=== PATIENT | female | born 1965 | race Caucasian/White ===

== ENCOUNTER 2017-08-31 12:19 | Emergency (ER) | payer OTHER ==
[~2017-08-31] VITALS: Ht 162.6 cm; Wt 77.8 kg
[~2017-08-31 12:19] MED LIST: BCP TD; CEFTIN250 M1 PO; CEFTIN500 MG PO; CIPRO 500MG TA500 MG; CLARITIN; CLARITIN 1010 MG/TAB PO; LEVOTHYROXIN0.025 MG PO; LEVOXYL0.025 MG PO; NORCO 325 MG-51 TAB PO; PREDNISONE20 MG PO; PYRIDIUM200 M1 PO; SINGULAIR; SINGULAIR 110 MG/TAB PO; ZOFRAN ODT4 MG PO; ZOLOFT 25MG25 MG
[2017-08-31 12:31] VITALS: BP 136/83; TEMP 98.8
[2017-08-31] MEDS ORDERED: PRILOTC (12:48)
[2017-08-31] MEDS ORDERED: PROAIR HFA0.09 MG/AC IH (12:48)
[2017-08-31] MEDS ORDERED: FLONASE NASAL S16 GM NS (12:48)
[2017-08-31] MEDS ORDERED: LEVOXYL0.1 MG PO (12:49)
[2017-08-31 13:21] LABS: BASO # 0.1 (0.0-0.2); BASO % 1.6 % (0.0-2.0); EOS # 0.2 (0.0-0.7); GRAN # 3.8 (1.4-6.5); GRAN % 55.3 % (42.2-75.2); HEMATOCRIT 38.3 % (37.0-47.0); HEMOGLOBIN 13.1 g/dl (12.5-16.0); LYMPH # 2.3 (1.2-3.4); LYMPH % 33.3 % (20.0-51.0); MEAN CELL VOLUME 89 fl (80.0-100.0); MEAN CORPUSCULAR HEMOGLOBIN 30 pg (27.0-31.0); MEAN CORPUSCULAR HGB CONC 34 g/dl (33.0-37.0); MEAN PLATELET VOLUME 9.9 fl (7.4-10.4); MONO # 0.5 (0.1-0.6); MONO % 6.7 % (1.7-9.3); PLATELET COUNT 204 K/mm3 (130-400); RED BLOOD COUNT 4.31 M/mm3 (4.10-5.30); REDCELL DISTRIBUTION WIDTH-CV 12.5 % (11.5-14.5)
[2017-08-31 13:31] LABS: ALBUMIN 4.3 gm/dL (3.5-5.0); BILIRUBIN,TOTAL 0.3 mg/dL (0.0-1.0); CALCIUM 8.8 mg/dL (8.4-10.2); CREATININE, serum 0.7 mg/dL (0.52-1.25); POTASSIUM 3.8 mmol/L (3.4-5.0); TOTAL PROTEIN 6.8 gm/dL (6.4-8.2)
[2017-08-31 13:33] LABS: COLLECTION METHOD CLEAN CATCH
[2017-08-31 13:39] LABS: PH 7 (5-8); SQUAMOUS EPITHELIAL 0-2 /hpf; URINE APPEARANCE Clear; URINE BACTERIA None Seen /hpf; URINE BILIRUBIN Negative (NEGATIVE); URINE BLOOD Negative (NEGATIVE); URINE COLOR Straw; URINE GLUCOSE Negative (NEGATIVE); URINE KETONE Negative (NEGATIVE); URINE LEUKOCYTE ESTERASE Negative (NEGATIVE); URINE NITRATE Negative (NEGATIVE); URINE PROTEIN(semi-quant) Negative (NEGATIVE); URINE RBC 0-2 /hpf; URINE UROBILINOGEN Negative (NEGATIVE)
[2017-08-31 14:26] VITALS: PULSE 72
== END 2017-08-31 14:26 | disposition home or self-care (01) ==
LOC: COL.ER 12:19
PROVIDERS: Emergency Medicine
DX: K64.9 Unspecified hemorrhoids (principal); G89.29 Other chronic pain; R10.32 Left lower quadrant pain; Z79.01 Long term (current) use of anticoagulants; Z98.890 Other specified postprocedural states

== ENCOUNTER 2019-09-04 03:43 | Emergency (ER) | payer OTHER ==
[~2019-09-04] VITALS: Ht 162.6 cm; Wt 77.3 kg
[~2019-09-04 03:43] MED LIST changes: +FLONASE NASAL S16 GM NS; +LEVOXYL0.1 MG PO; +PRILOTC; +PROAIR HFA0.09 MG/AC IH
[2019-09-04] MEDS ORDERED: PREDNISONE20 MG PO (05:16)
[2019-09-04 06:00] VITALS: BP 111/73; PULSE 76; TEMP 97.5
== END 2019-09-04 06:12 | disposition home or self-care (01) ==
LOC: COL.ER 03:43
DX: J45.901 Unspecified asthma with (acute) exacerbation (principal); E89.0 Postprocedural hypothyroidism; Z79.51 Long term (current) use of inhaled steroids
CPT/HCPCS: J7512

== ENCOUNTER 2020-11-27 16:19 | Emergency (ER) | payer OTHER ==
[~2020-11-27] VITALS: Ht 162.6 cm; Wt 75.0 kg
[2020-11-27 16:52] LABS: COLLECTION METHOD CLEAN CATCH
[2020-11-27 17:13] LABS: MUCOUS Present /lpf; PH 6 (5-8); SQUAMOUS EPITHELIAL 0-2 /hpf; URINE APPEARANCE Hazy; URINE BACTERIA None Seen /hpf; URINE BILIRUBIN Negative (NEGATIVE); URINE BLOOD Negative (NEGATIVE); URINE COLOR Yellow; URINE GLUCOSE Negative (NEGATIVE); URINE KETONE Negative (NEGATIVE); URINE LEUKOCYTE ESTERASE 1+ (NEGATIVE); URINE NITRATE Negative (NEGATIVE); URINE PROTEIN(semi-quant) Negative (NEGATIVE); URINE UROBILINOGEN Negative (NEGATIVE)
[2020-11-27] MEDS ORDERED: FLEXERIL 1010 MG/TAB PO (18:04)
[2020-11-27 18:27] VITALS: BP 129/71; PULSE 75
== END 2020-11-27 18:27 | disposition home or self-care (01) ==
LOC: COL.ER 16:19
PROVIDERS: Emergency Medicine
DX: M54.5 Low back pain (principal); J45.909 Unspecified asthma, uncomplicated; E07.9 Disorder of thyroid, unspecified; Z79.890 Hormone replacement therapy
CPT/HCPCS: J1885; J2360

== ENCOUNTER 2021-09-23 10:11 | Emergency (ER) | payer OTHER ==
[~2021-09-23] VITALS: Ht 162.6 cm; Wt 70.5 kg
[~2021-09-23 10:11] MED LIST changes: +FLEXERIL 1010 MG/TAB PO
[2021-09-23 10:17] VITALS: BP 125/84; TEMP 97.9
[2021-09-23 11:20] VITALS: PULSE 64
== END 2021-09-23 11:20 | disposition home or self-care (01) ==
LOC: COL.ER 10:11
DX: H53.451 Other localized visual field defect, right eye (principal)